=== PATIENT | female | born 1990 | race Caucasian/White ===

== ENCOUNTER 2024-10-23 22:39 | Inpatient (IN) ==
[2024-10-23] MEDS ORDERED: Lidocaine 1% VIAL 10 MG/ML 30 ML VIAL INJ PRN (22:55)
[2024-10-23] MEDS: Lactated Ringers 1000 ml BAG 1,000 ML IV ONE (23:00)
[2024-10-23] MEDS: ceFAZolin 2 GM PREMIX 2 GM/50 ML BAG IV ONE (23:14)
[2024-10-23] MEDS: fentaNYL 100 mcg/2 ml 50 MCG/ML VIAL ONE (23:35)
[2024-10-24] MEDS ORDERED: Glycerin ADULT 2.4 gm SUPP PR PRN (01:45)
[2024-10-24] MEDS: Oxytocin 10 UNITS/ML 1 ML VIAL IM ONE (02:15)
[2024-10-24] MEDS: Oxytocin in LR 20,000 MILLI.UNIT/1,000 ML BAG IV SCH ×2 (02:30→09:27)
[2024-10-24] MEDS: Witch Hazel PAD JAR TOPICAL PRN (03:07)
[2024-10-24] MEDS: Dibucaine 1% OINT 28.35 GM TUBE PR PRN (03:07)
[2024-10-24] MEDS: Buffered Lidocaine 1% SYRIN 1 ml INTRADERM ONE (03:50)
[2024-10-24] MEDS: OBEPIDURAL (200 ML) 0 ML EPIDURAL ONE (03:52)
[2024-10-24] MEDS: Lactated Ringers 1000 ml BAG 1,000 ML IV SCH (04:10)
[2024-10-24] MEDS: Oxytocin in LR 20,000 MILLI.UNIT/1,000 ML BAG IV ONE (04:10)
[2024-10-24] MEDS: Lidocaine 1.5% EPI 1:200,000 30 ML SDV ONE (04:10)
[2024-10-24] MEDS: Tranexamic Acid 1 GM/100ML BAG 0 MG/0 ML BAG IV ONE (04:11)
[2024-10-24] MEDS: fentaNYL 100 mcg/2 ml 50 MCG/ML VIAL EPIDURAL ONE (06:46)
[2024-10-24 09:02] LABS: ABS Eosinophils 0.1 10^3/uL (0.0-0.5); ABS Monocytes 0.6 10^3/uL (0.0-0.9); ABS Neutrophils 7.6 10^3/uL (1.5-7.6); Eosinophil % 0.9 %; Hematocrit 26.8 % (35-45); Hemoglobin 9.5 g/dL (11.5-14.3); Lymphocyte % 19.8 %; Mean Corpuscular Hemoglobin 31.8 pg (27-33); Mean Corpuscular Hgb Conc 35.6 g/dL (31-36); Mean Corpuscular Volume 89.4 fL (80-97); Mean Platelet Volume 7.9 fL (7.5-11.2); Platelet Count 171 10^3/uL (150-450); Red Cell Distribution Width 14.2 % (12-17); White Blood Count 10.3 10^3/uL (3.8-11.8)
[2024-10-25] MEDS: fentaNYL 100 mcg/2 ml 50 MCG/ML VIAL ONE (09:28)
[2024-10-26 07:27] VITALS: BP 116/73
== END 2024-10-26 11:28 | disposition home or self-care (01) | DRG 560 ==
LOC: MCHOBOUT 22:39 → MCHOB 22:58
PROVIDERS: ADMIT Midwife; ATTEND Midwife